=== PATIENT | male | born 1945 | race Caucasian/White ===

== ENCOUNTER 2020-02-28 15:04 | Observation (INO) ==
[2020-02-28 16:38] LABS: Hematocrit 35 % (42-52); Hemoglobin 11.8 g/dL (14.0-18.0); Mean Corpuscular HGB Conc 34 g/dL (31-36); Mean Corpuscular Hemoglobin 34 pg (27-31); Mean Corpuscular Volume 100 fL (80-94); Mean Platelet Volume 10.9 fL (7.4-10.4); Platelet Count 221 10^3/uL (150-450); Red Blood Count 3.49 10^6 /uL (4.18-5.48); Red Cell Distribution Width 18 % (10-15); White Blood Count 4.7 10^3/uL (3.5-10.8)
[2020-02-28 16:43] LABS: Troponin I 0.03 ng/mL (<0.03)
[2020-02-28] MEDS ORDERED: NS 0.9% 1000 ml BAG 1,000 ML IV ONE (17:03)
[2020-02-28 17:33] LABS: ABS Basophils 0.1 10^3/ul (0-0.2); ABS Eosinophils 0.3 10^3/ul (0-0.6); ABS Lymphocytes 1.8 10^3/ul (1.0-4.8); ABS Monocytes 0.8 10^3/ul (0-0.8); Eosinophil % 5.7 %; Lymphocyte % 37.8 %; Nucleated Red Blood Cells % 0.1
[2020-02-28 18:16] LABS: Albumin 2.8 g/dL (3.2-5.2); Albumin/Globulin Ratio 0.9 (1-3); Calcium 10.1 mg/dL (8.6-10.3); EGFR African American 82.2 (>60); EGFR Non-African American 67.9 (>60); Potassium 4.6 mmol/L (3.5-5.0); Total Bilirubin 1.4 mg/dL (0.2-1.0); Total Protein 5.8 g/dL (6.4-8.9)
[2020-02-28] MEDS ORDERED: Ondansetron 4 mg VIAL 2 MG/ML 2 ml VIAL IV PRN (18:40)
[2020-02-28] MEDS ORDERED: NS 0.9% 1000 ml BAG 1,000 ML IV SCH (18:45)
[2020-02-28] MEDS ORDERED: Dextrose 50% Syringe 50 ml 25 GM/50 ML SYRINGE IV PUSH PRN (19:08)
[2020-02-28 19:16] LABS: Troponin I 0.03 ng/mL (<0.03)
[2020-02-28] MEDS ORDERED: Iodixanol (CONTRAST) 320 MG/ML 100 ML SDV IV ONE (19:31)
[2020-02-28] MEDS ORDERED: Lactulose 30 ml UDC PO SCH (21:00)
[2020-02-28] MEDS: Lactulose 30 ml UDC PO SCH (21:32)
[2020-02-28] MEDS: Enoxaparin 40 MG/0.4 ML SYR SUBCUT SCH (21:32)
[2020-02-29 00:18] LABS: Troponin I 0.04 ng/mL (<0.03)
[2020-02-29 07:54] LABS: Anion Gap 5 mmol/L (2-11); BUN/Creatinine Ratio 13.3 (8-20); Blood Urea Nitrogen 12 mg/dL (6-24); CO2 Carbon Dioxide 25 mmol/L (22-32); Chloride 111 mmol/L (101-111); EGFR African American 100.4 (>60); EGFR Non-African American 82.9 (>60); Glucose 88 mg/dL (70-100); Potassium 3.9 mmol/L (3.5-5.0); Sodium 141 mmol/L (135-145)
[2020-02-29 08:12] LABS: Hematocrit 33 % (42-52); Hemoglobin 11.4 g/dL (14.0-18.0); Mean Corpuscular HGB Conc 35 g/dL (31-36); Mean Corpuscular Hemoglobin 35 pg (27-31); Mean Corpuscular Volume 99 fL (80-94); Platelet Count 176 10^3/uL (150-450); Red Blood Count 3.29 10^6 /uL (4.18-5.48); Red Cell Distribution Width 18 % (10-15); White Blood Count 4.7 10^3/uL (3.5-10.8)
[2020-02-29] MEDS: Lactulose 30 ml UDC PO SCH ×4 (08:41→20:32)
[2020-02-29 08:48] LABS: ABS Eosinophils 0.9 10^3/ul (0-0.6)
[2020-02-29 09:05] LABS: Troponin I 0.03 ng/mL (<0.03)
[2020-02-29 09:23] LABS: Mean Platelet Volume 10.5 fL (7.4-10.4)
[2020-02-29] MEDS: Enoxaparin 40 MG/0.4 ML SYR SUBCUT SCH (20:34)
[2020-03-01] MEDS ORDERED: Regadenoson 0.4 MG/5 ML SYRINGE ONE (08:10)
[2020-03-01] MEDS ORDERED: Aminophylline 25 MG/ML VIAL ONE (08:13)
[2020-03-01] MEDS ORDERED: Lorazepam PYXIS KEY ONE ×2 (08:26→09:40)
[2020-03-01] MEDS ORDERED: LORazepam 2 mg VIAL 1 ml ONE (08:26)
[2020-03-01] MEDS: Lactulose 30 ml UDC PO SCH (10:41)
[2020-03-01 11:14] VITALS: BP 133/72
== END 2020-03-01 13:45 | disposition home or self-care (01) ==
LOC: MEDTELE 15:04 → ED 15:04
PROVIDERS: ADMIT Nurse Practitioner Adult Health; ATTEND Hospitalist